=== PATIENT | female | born 1980 | race Caucasian/White ===

== ENCOUNTER 2016-11-10 16:04 | Emergency (ER) | payer OTHER ==
[~2016-11-10] VITALS: Ht 172.7 cm; Wt 79.5 kg
[2016-11-10] MEDS ORDERED: BACTRIM 400 MG-1 TAB PO (17:43)
[2016-11-10 18:02] VITALS: BP 139/86; PULSE 95; TEMP 98.7
== END 2016-11-10 18:02 | disposition home or self-care (01) ==
LOC: COL.ER 16:04
DX: T81.4XXA Infection following a procedure, initial encounter (principal); L76.82 Other postprocedural complications of skin and subcutaneous tissue; L08.89 Other specified local infections of the skin and subcutaneous tissue

== ENCOUNTER → 2016-11-12 | Outpatient (REF) ==
[~2016-11-12] MED LIST: BACTRIM 400 MG-1 TAB PO
== END ==
LOC: ZMSC 13:50
DX: Z01.89 Encounter for other specified special examinations (principal)

== ENCOUNTER → 2017-08-27 | Outpatient (REF) | LOC: ZLAB.WCH 17:44 | DX: Z01.89 Encounter for other specified special examinations (principal) ==

== ENCOUNTER → 2017-09-18 | Outpatient (CLI) | payer OTHER | LOC: COL.RAD 06:08 | DX: R93.5 Abnormal findings on diagnostic imaging of other abdominal regions, including retroperitoneum (principal); R10.9 Unspecified abdominal pain | CPT/HCPCS: A9537 ==

== ENCOUNTER → 2017-09-27 | Outpatient (CLI) | payer OTHER | LOC: COL.RAD 08:16 | DX: R14.0 Abdominal distension (gaseous) (principal); R11.0 Nausea; R14.2 Eructation; R10.9 Unspecified abdominal pain | CPT/HCPCS: A9541 ==

== ENCOUNTER → 2018-07-04 | Outpatient (CLI) | payer OTHER | LOC: COL.RAD 12:50 | DX: M51.36 Other intervertebral disc degeneration, lumbar region (principal); M51.26 Other intervertebral disc displacement, lumbar region; M48.061 Spinal stenosis, lumbar region without neurogenic claudication; Z98.1 Arthrodesis status | CPT/HCPCS: A9585 ==

== ENCOUNTER → 2019-10-23 | Outpatient (CLI) | payer OTHER | LOC: COL.RAD 13:47 | DX: N64.4 Mastodynia (principal) ==

== ENCOUNTER → 2020-12-16 | Outpatient (CLI) | payer OTHER | LOC: MC.RAD | DX: Z12.31 Encounter for screening mammogram for malignant neoplasm of breast (principal) ==

== ENCOUNTER → 2021-12-19 | Outpatient (CLI) | payer OTHER | LOC: MC.RAD 10:15 | DX: Z12.31 Encounter for screening mammogram for malignant neoplasm of breast (principal) ==

== ENCOUNTER → 2022-02-06 | Outpatient (CLI) | payer OTHER | LOC: COL.RAD 09:40 | DX: H90.41 Sensorineural hearing loss, unilateral, right ear, with unrestricted hearing on the contralateral side (principal) | CPT/HCPCS: A9575 ==

== ENCOUNTER → 2023-01-24 | Outpatient (CLI) | payer BC | LOC: MC.RAD 08:00 | DX: Z12.31 Encounter for screening mammogram for malignant neoplasm of breast (principal) ==

== ENCOUNTER → 2024-07-02 | Outpatient (CLI) | payer BC | LOC: MC.RAD 13:57 | DX: Z12.31 Encounter for screening mammogram for malignant neoplasm of breast (principal) ==